=== PATIENT | female | born 1985 ===

== ENCOUNTER 2017-09-19 20:46 | Inpatient (IN) | payer OTHER ==
[2017-09-19] VITALS (8 sets, daily range): BP systolic 116–122; BP diastolic 58–76; PULSE 93–110; TEMP 98.1
[~2017-09-19] VITALS: Ht 165.1 cm; Wt 89.5 kg
[~2017-09-19 20:46] MED LIST: PRENATAL1 TA1 PO; SYNTHROID0.1 MG/TAB PO
[2017-09-19 23:10] LABS: BASO % 0.3 % (0.0-2.0); EOS # 0.1 (0.0-0.7); EOS % 0.6 % (0-4.0); GRAN % 81.7 % (42.2-75.2); HEMATOCRIT 38.1 % (37.0-47.0); HEMOGLOBIN 12.7 g/dl (12.5-16.0); LYMPH # 1.1 (1.2-3.4); LYMPH % 9.9 % (20.0-51.0); MEAN CELL VOLUME 92 fl (80.0-100.0); MEAN CORPUSCULAR HEMOGLOBIN 31 pg (27.0-31.0); MEAN CORPUSCULAR HGB CONC 33 g/dl (33.0-37.0); MONO # 0.8 (0.1-0.6); PLATELET COUNT 214 K/mm3 (130-400); RED BLOOD COUNT 4.13 M/mm3 (4.10-5.30); REDCELL DISTRIBUTION WIDTH-CV 13.1 % (11.5-14.5)
[2017-09-20] VITALS (25 sets, daily range): BP systolic 109–136; BP diastolic 56–85; PULSE 82–127; TEMP 97.5–98.3
[2017-09-21 00:30] VITALS: BP 122/58; PULSE 92; TEMP 97.2
[2017-09-21 08:00] VITALS: BP 126/69; PULSE 93; TEMP 97.5
[2017-09-21] MEDS ORDERED: IBU600 MG PO (08:36)
[2017-09-21 15:30] VITALS: BP 122/68; PULSE 90; TEMP 97.9
[2017-09-21 21:38] VITALS: BP 121/74; PULSE 97; TEMP 97.9
[2017-09-22 04:04] VITALS: BP 105/61; PULSE 92; TEMP 97.7
[2017-09-22 07:30] VITALS: BP 102/57; PULSE 91; TEMP 98
== END 2017-09-22 14:20 | disposition home or self-care (01) | DRG 775 ==
LOC: LDRO 20:46 → OB 21:25 → LDR 21:25 → OB 09-20 05:54
PROVIDERS: Obstetrics & Gynecology
PROC: 10E0XZZ Delivery of Products of Conception, External Approach (ICD-10-PCS; principal; 2017-09-20)
PROC: 0HQ9XZZ Repair Perineum Skin, External Approach (ICD-10-PCS; 2017-09-20)
DX: O99.284 Endocrine, nutritional and metabolic diseases complicating childbirth (principal); E03.9 Hypothyroidism, unspecified; O69.1XX0 Labor and delivery complicated by cord around neck, with compression, not applicable or unspecified; O70.0 First degree perineal laceration during delivery; O99.824 Streptococcus B carrier state complicating childbirth; Z3A.39 39 weeks gestation of pregnancy; Z37.0 Single live birth
CPT/HCPCS: J2540; J2590; J2795; J7060; J7120

== ENCOUNTER 2021-06-25 22:48 | Inpatient (IN) | payer OTHER ==
[~2021-06-25] VITALS: Ht 165.1 cm; Wt 85.9 kg
[2021-06-25 00:15] VITALS: BP 119/83; PULSE 90; TEMP 98.3
--- NOTE | 2021-06-25 00:38 | NUR ---
0038- METHERGINE GIVEN IM ORDERED FOR BLEEDING. 0045- REPAIR COMPLETE. PERICARE PROVIDED. CLEAN PAD PROVIDED. ICEPACK TO PERINEUM. FEET DOWN FROM FOOTPLATES AND RECOVERY STARTED.
[~2021-06-25 22:48] MED LIST changes: +IBU600 MG PO
--- NOTE | 2021-06-25 22:57 | NUR ---
2256- PT PRESENTS TO LDR COMPLAINING OF LEAKING FLUID AND CONTRACTIONS, TO LR4 PER WHEELCHAIR, CHANGED INTO GOWN. 2304- EFM X2 APPLIED. PT STATES SHE HAS BEEN LEAKING SINCE 2199, CLEAR FLUID. NOW HAVING CONTRACTIONS WTIH SPOTTING. PLAN OF CARE FOR LABOR CHECK DISCUSSED AND QUESTIONS ANSWERED.
--- NOTE | 2021-06-25 23:05 | NUR ---
2305- AMNITRACE POSITIVE FOR RUPTURE OF MEMBRANES, POOLING OF PINK TINGED FLUID. SVE BY THIS NURSE 3-/-2. NURSING ADMISSION HISTORY AND PHYSICAL COMPLETE. 2315- DR REDMAN CALLED CHARTED. ORDERS FOR ADMISSION 2325- IV START TO LEFT FOREARM CHARTED, BLOOD DRAWN FOR LAB AND IV FLUIDS INFUSING. PT DECLINES EPIDURAL AT THIS TIME. 2335- CONSENTS SIGNED. 2345- PT STATES SHE IS MORE UNCOMFORTABLE AND WOULD LIKE HER EPIDUAL NOW. 2355- JOVI SUAREZ CALLED FOR EPIDURAL PLACEMENT. 0010- PT VERY UNCOMFORTABLE AND FEELING PRESSURE. SVE BY THIS NURSE /+1. PT SPONTANEOUSLY PUSHING SOME. 0012- DR REDMAN CALLED FOR DELIVERY. NURSE AT BEDSIDE COACHING PT ON BREATHING THROUGH CONTRACTIONS. 0025- DR REDMAN HERE. SVE BY DR REDMAN +3. PT UP IN [facility], [place]. 0027- PT BEGINS COACHED PUSHING WITH CONTRACTION. 0028- SPONTANEOUS VAGINAL DELIVERY OF VIABLE FEMALE, VIGOROUS, TO MOTHER'S ABDOMEN AND CARE OF NURSERY STAFF. 0031- SPONTANEOUS DELIVERY OF PLACENTA, EXAMINED BY DR REDMAN. REPAIR IN PROGRESS. PT EXPERIENCING INCREASED FLOW. DR REDMAN ORDERS METHERGINE.
[2021-06-25] MEDS ORDERED: DURLAZA162.5 MG PO (23:06)
[2021-06-25] MEDS ORDERED: FLINTSTONES1 CTB PO (23:07)
[2021-06-25 23:30] VITALS: BP 119/83; PULSE 90; TEMP 98.3
[2021-06-26] VITALS (12 sets, daily range): BP systolic 109–137; BP diastolic 59–78; PULSE 89–102; TEMP 97.5–98.5
[2021-06-26 00:26] LABS: BASO % 0.2 % (0.0-2.0); EOS % 0.2 % (0-4.0); GRAN % 86.5 % (42.2-75.2); HEMOGLOBIN 11.6 g/dl (12.5-16.0); LYMPH % 6.4 % (20.0-51.0); MEAN CELL VOLUME 90 fl (80.0-100.0); MEAN CORPUSCULAR HEMOGLOBIN 30 pg (27.0-31.0); MEAN CORPUSCULAR HGB CONC 34 g/dl (33.0-37.0); MEAN PLATELET VOLUME 10.7 fl (7.4-10.4); MONO % 5.9 % (1.7-9.3); PLATELET COUNT 228 K/mm3 (130-400); RED BLOOD COUNT 3.83 M/mm3 (4.10-5.30)
[2021-06-26 00:28] LABS: HEMATOCRIT 34.6 % (37.0-47.0)
--- NOTE | 2021-06-26 02:45 | NUR ---
0245- IV TO SALINE LOCK. PT ASSISTED TO AMBULATE TO BATHROOM. ABLE TO VOID 400ML WITHOUT DIFFICULTY. PT PERFORMS PERICARE. NORMAL LOCHIA DISCUSSED. CLEAN PAD, PANTIES, AND GOWN PROVIDED. 0300- PT AMBULATES TO ROOM 218. BELONGINGS AND BABY WITH PT. PT ORIENTED TO ROOM AND CALL LIGHTS. PT DENIES FURTHER NEEDS AT THIS TIME.
[2021-06-26] MEDS ORDERED: IBU800 M1 PO (10:13)
[2021-06-27 07:15] VITALS: BP 108/62; PULSE 81; TEMP 97.4
== END 2021-06-27 11:55 | disposition home or self-care (01) | DRG 805 ==
LOC: LDRO 22:48 → LDR 22:57 → LDRO 23:17 → LDR 23:18 → OB 06-26 03:00
PROVIDERS: Obstetrics & Gynecology; ADMIT Obstetrics & Gynecology
PROC: 10E0XZZ Delivery of Products of Conception, External Approach (ICD-10-PCS; principal; 2021-06-26)
PROC: 0HQ9XZZ Repair Perineum Skin, External Approach (ICD-10-PCS; 2021-06-26)
DX: O24.420 Gestational diabetes mellitus in childbirth, diet controlled (principal); U07.1 COVID-19; Z37.0 Single live birth; O98.52 Other viral diseases complicating childbirth; O99.284 Endocrine, nutritional and metabolic diseases complicating childbirth; Z3A.39 39 weeks gestation of pregnancy; E03.9 Hypothyroidism, unspecified; O69.1XX0 Labor and delivery complicated by cord around neck, with compression, not applicable or unspecified; Z73.0 Burn-out; O70.0 First degree perineal laceration during delivery
CPT/HCPCS: J2210; J2590; J7120